=== PATIENT | female | born 1985 | race Caucasian/White ===

== ENCOUNTER 2022-03-29 13:12 | Emergency (ER) | payer BC ==
[~2022-03-29] VITALS: Ht 172.7 cm; Wt 90.7 kg
[2022-03-29 13:21] VITALS: BP_SYST 167
[2022-03-29 13:49] LABS: HEMATOCRIT 35.7 % (36-48); HEMOGLOBIN 11.6 g/dL (12.0-16.0); MEAN CORPUSCULAR HEMOGLOBIN 24 pg (27-31); MEAN CORPUSCULAR HGB CONC 32 % (32-36); MEAN CORPUSCULAR VOLUME 73 fL (79.0-98.0); PLATELET COUNT (AUTO) 303 K/uL (130-430); RED BLOOD CELL COUNT(AUTO) 4.89 MIL/uL (4.2-6.2); RED CELL DISTRIBUTION WIDTH 14.9 % (9.0-15.0); WHITE BLOOD COUNT (AUTO) 8.3 K/uL (4.8-10.8)
[2022-03-29 13:55] LABS: ANION GAP 6 (5-15); CALCIUM 8.7 mg/dL (8.4-11.0); CHLORIDE 103 mmol/L (98-107); CREATININE 0.58 mg/dL (0.55-1.30); GFR AFRICAN AMERICAN 150 mL/min (>90); GLUCOSE 106 mg/dL (70-99); UREA NITROGEN, BLOOD 11 mg/dL (8-21)
[2022-03-29 14:02] LABS: ALANINE AMINOTRANSFERASE 24 U/L (12-78); ALBUMIN 3.5 g/dL (3.4-4.8); ASPARTATE AMINOTRANSFERASE 20 U/L (10-37); TOTAL BILIRUBIN 0.2 mg/dL (0.0-1.0)
[2022-03-29 14:16] LABS: BASOPHILS % (MANUAL) 0 % (0-2); EOSINOPHILS % (MANUAL) 1 % (0-7); LYMPHOCYTES % (MANUAL) 31 % (20-46); MONOCYTES % (MANUAL) 5 % (0-11)
[2022-03-29] MEDS ORDERED: predniSONE 20 MG TABLET PO ONE (15:15)
[2022-03-29] MEDS ORDERED: PRED20TA PO (15:49)
[2022-03-29] MEDS ORDERED: ACYC-133 PO (15:49)
[2022-03-29 15:54] VITALS: BP_SYST 124
== END 2022-03-29 15:53 | disposition home or self-care (01) ==
LOC: SED 13:12
DX: G51.0 Bell's palsy (principal); R20.2 Paresthesia of skin; R51.9 Headache, unspecified; Z79.899 Other long term (current) drug therapy
CPT/HCPCS: 99284; 70450; 85027; 80053; 84703; 85007; 84484; 36415; 76376; 81025; J7512

== ENCOUNTER 2022-04-09 16:41 | Emergency (ER) | payer BC ==
[~2022-04-09] VITALS: Ht 175.3 cm; Wt 111.1 kg
[~2022-04-09 16:41] MED LIST: ACYC-133 PO; PRED20TA PO
[2022-04-09] MEDS ORDERED: METOCLOPRAMIDE HCL 10 MG/2 ML VIAL IM ONE (17:15)
[2022-04-09] MEDS ORDERED: KETOROLAC TROMETHAMINE 30 MG VIAL IM ONE (17:15)
[2022-04-09] MEDS ORDERED: DIPHENHYDRAMINE HCL 25 MG CAPSULE PO ONE (17:15)
[2022-04-09 17:29] VITALS: BP_SYST 142
--- NOTE | 2022-04-09 17:48 | NUR ---
RECEIVED PT FROM GREG COMER. 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 P IS AAOX4. ON R/A. DENIES N/V/D/C. RIGHT FACIAL WEAKNESS NOTED. SKIN WARM, INTACT, NO EDEMA. SIDERAILS UP X2.
--- NOTE | 2022-04-09 17:58 | NUR ---
SCHEDULED MEDS GIVEN AND TOLERATED WELL. PT GIVEN REGLAN IM TO RIGHT DELTOID AND TORADOL IM TO LEFT DELTOID.
--- NOTE | 2022-04-09 18:48 | NUR ---
DR. ASHER AT BEDSIDE TO ASSESS PT.
[2022-04-09] MEDS ORDERED: DEXAMETHASONE SOD PHOSPHATE 10 MG/ML VIAL IVP ONE (19:00)
[2022-04-09] MEDS ORDERED: NACL 0.9% 1,000 ML IV ONE (19:00)
--- NOTE | 2022-04-09 19:19 | NUR ---
# 20 gauge angiocath placed to LAC. Use of asceptic technique. Opsite placed over site. Blood return noted. Flushed with 10 cc of normal saline. No evidence of infiltration noted. Patient tolerated well.
--- NOTE | 2022-04-09 19:20 | NUR ---
ENDORSED PT TO GREG VAUGHAN. ALL QUESTIONS AND CONCERNS ADDRESSED.
[2022-04-09 20:10] LABS: BASOPHILS % (AUTO) 0.2 % (0.0-2.0); CALCIUM 8.5 mg/dL (8.4-11.0); CREATININE 0.61 mg/dL (0.55-1.30); EOSINOPHILS # (AUTO) 0.1 K/uL (0.0-0.4); EOSINOPHILS % (AUTO) 0.8 % (0.0-4.0); HEMATOCRIT 35.8 % (36-48); HEMOGLOBIN 11.4 g/dL (12.0-16.0); LYMPHOCYTES # (AUTO) 2.4 K/uL (1.0-5.5); LYMPHOCYTES % (AUTO) 20.7 % (20.5-51.5); MEAN CORPUSCULAR HEMOGLOBIN 23 pg (27-31); MEAN CORPUSCULAR HGB CONC 32 % (32-36); MEAN CORPUSCULAR VOLUME 73 fL (79.0-98.0); MONOCYTES # (AUTO) 0.7 K/uL (0.0-1.0); MONOCYTES % (AUTO) 6.3 % (1.7-9.3); NEUTROPHILS # (AUTO) 8.3 K/uL (1.8-7.7); PLATELET COUNT (AUTO) 314 K/uL (130-430); RED CELL DISTRIBUTION WIDTH 15.3 % (9.0-15.0); WHITE BLOOD COUNT (AUTO) 11.5 K/uL (4.8-10.8)
[2022-04-09] MEDS ORDERED: IMI50 PO (20:24)
[2022-04-09] MEDS ORDERED: BUTA1CAP43 PO (20:24)
[2022-04-09 20:58] VITALS: BP_SYST 128
--- NOTE | 2022-04-09 20:59 | NUR ---
Patient given written and verbal discharge instructions and verbalizes understanding. ER MD discussed with patient the results and treatment provided. Patient in stable condition. ID arm band removed. IV catheter removed intact and dressing applied, no active bleeding. Rx of fioricet, imitrex given. Patient educated on pain management and to follow up with PMD. Pain Scale 0/10. Opportunity for questions provided and answered. Medication side effect fact sheet provided.
== END 2022-04-09 20:58 | disposition home or self-care (01) ==
LOC: SED 16:41
DX: G43.909 Migraine, unspecified, not intractable, without status migrainosus (principal); G51.0 Bell's palsy; Z79.899 Other long term (current) drug therapy
CPT/HCPCS: 99285; 96374; 70460; 96361; 80048; 85025; 36415; 76376; 96372; Q0163; J1100; J1885; J2765; Q9967; J7030

== ENCOUNTER 2022-08-20 14:08 | Emergency (ER) | payer BC ==
[~2022-08-20] VITALS: Ht 175.3 cm; Wt 107.0 kg
[~2022-08-20 14:08] MED LIST changes: +BUTA1CAP43 PO; +IMI50 PO
[2022-08-20 14:58] VITALS: BP_SYST 148
[2022-08-20] MEDS ORDERED: PROCHLORPERAZINE EDISYLATE 10 MG/2 ML VIAL IVP ONE (17:15)
[2022-08-20] MEDS ORDERED: DIPHENHYDRAMINE INJ 50 MG/ML VIAL IVP ONE ×2 (17:15→18:15)
[2022-08-20] MEDS ORDERED: NACL 0.9% 1,000 ML IV ONE (17:15)
[2022-08-20] MEDS ORDERED: KETOROLAC TROMETHAMINE 15 MG VIAL IVP ONE (17:15)
[2022-08-20] MEDS ORDERED: DEXAMETHASONE SOD PHOSPHATE 10 MG/ML VIAL IVP ONE (17:15)
[2022-08-20 19:51] VITALS: BP_SYST 134
== END 2022-08-20 19:51 | disposition home or self-care (01) ==
LOC: SED 14:08
DX: G43.909 Migraine, unspecified, not intractable, without status migrainosus (principal); Z79.899 Other long term (current) drug therapy
CPT/HCPCS: 99284; 96374; 96375; 96361; 96376; 81025; J1100; J1200; J1885; J0780; J7030